=== PATIENT | male | born 1975 | race Hispanic/Latino ===

== ENCOUNTER 2023-12-24 07:09 | Outpatient (CLI) | payer BC ==
[2023-12-24] MEDS ORDERED: Iopamidol 370 76% 100 ML VIAL ONE (11:26)
== END 2023-12-24 07:10 | disposition home or self-care (01) ==
LOC: CT 07:09
PROVIDERS: ATTEND Surgery
DX: K43.9 Ventral hernia without obstruction or gangrene (principal)
CPT/HCPCS: 74177; Q9967